=== PATIENT | female | born 1985 | race Caucasian/White ===

== ENCOUNTER 2023-03-24 17:54 | Emergency (ER) | payer BC, SELFPAY ==
--- NOTE | ~2023-03-24 | XR_ITS ---
EXAM: XR tibia fibula RT 2V DATE: 03/24/2023 18:20 HISTORY: FALL DURING WATER SKIING,GEN ANT TIBIA PAIN . COMPARISON: None available. FINDINGS: Normal mineralization. No fracture or dislocation. No lytic or blastic lesion. Joint space s are maintained. No erosion or periosteal change. Soft tissues within normal limits. IMPRESSION: No acute osseous finding in the right tibia or fibula. Reviewed, dictated and finalized at location K.
[2023-03-24 18:02] VITALS: BP 139/90; PULSE 96; RESP 16; TEMP 36.1; O2SAT 100
--- NOTE | 2023-03-24 18:12 | ED.EXTPRO ---
HPI - Extremity Problem General Chief complaint: Extremity Problem,Nontraumatic Stated complaint: Right leg pain Time Seen by Provider: 03/24/23 18:34 Source: patient and RN notes reviewed Mode of arrival: ambulatory Limitations: no limitations History of Present Illness HPI Narrative: 37-year-old female presents with concern for right anterior lower leg pain. Reports 1 week ago she was water skiing when she fell and had a media anterior leg pain. Reports she has waited for the pain to improve, but is not improving. She reports she tried seeing her primary doctor but was unable to. She denies any or mention for her symptoms. She denies bruising, open skin, swelling, redness, warmth MD Complaint: extremity pain Related Data Home Medications Medication Instructions Recorded Confirmed citrulline 1 gram/4 gram oral 9 g PO DAILY 03/24/23 03/24/23 powder packet etonogestrel 0.12 mg-ethinyl 1 vag ring vaginal ONCE 03/24/23 03/24/23 estradiol 0.015 mg/24 hr vaginal ring (NuvaRing) levocarnitine 330 mg tablet 330 mg PO TID 03/24/23 03/24/23 (Carnitor) sodium phenylbutyrate 500 mg 500 mg PO TID 03/24/23 03/24/23 tablet (Buphenyl) Allergies Allergy/AdvReac Type Severity Reaction Status Date / Time No Known Allergies Allergy Verified 03/24/23 18:16 Review of Systems Review of Systems: CONSTITUTIONAL: Denies malaise, chills, sweats, or fever. SKIN: Denies rash or itching, open skin, laceration, abrasion, redness, warmth, swelling. MUSCULOSKELETAL: Reports right lower leg pain NEUROLOGIC: Denies numbness, weakness All systems reviewed & are unremarkable except as noted in HPI and below PMFSH Comments At time of signature, agree with nursing past medical, surgical, social and family history. There is no relevant family history pertinent to the presenting complaint Exam Narrative: GENERAL: Well-appearing, well-nourished, and in no acute distress. HEAD: Normocephalic, atraumatic. EYES: PERRLA, conjunctivae clear NECK: Supple. CHEST: Speaks in full sentences. No respiratory distress. HEART: Regular rate and rhythm. Normal and equal peripheral pulses. EXTREMITIES: Right lower leg has normal strength and sensation, normal range of motion. No edema or ecchymosis. 5/5 strength with ankle and knee flexion and extension. Normal sensation with sensitivity to light touch and pain. No point tenderness. No open wounds, no skin tenting, no devitalized tissue or atrophy, no trophic changes, no obvious deformity, alignment normal, nearby joints and structures intact. Distal pulses palpable and equal bilaterally, skin warm, dry, pink. Capillary refill less than 3 seconds. SKIN: Warm, dry, no rash. NEURO: Alert and oriented x3. PSYCH: Normal mood and affect Course Course Emergency Course: Patient is aware of diagnosis, understands and agrees to treatment plan. Anticipatory guidance given. Patient agrees to follow-up as directed and is aware of reasons to seek care at the emergency department. Portions of this record may have been created with voice recognition software Level of Care: Express Care Visit Vital Signs Vital signs: Vital Signs Temperature 97 F L 03/24/23 18:02 Pulse Rate 96 03/24/23 18:02 Respiratory Rate 16 03/24/23 18:02 Blood Pressure 139/90 03/24/23 18:02 Pulse Oximetry 100 03/24/23 18:02 Oxygen Delivery Room Air 03/24/23 18:02 Temperature 97 F L 03/24/23 18:02 Pulse Rate 96 03/24/23 18:02 Respiratory Rate 16 03/24/23 18:02 Blood Pressure 139/90 03/24/23 18:02 Pulse Oximetry 100 03/24/23 18:02 Oxygen Delivery Room Air 03/24/23 18:02 Reviewed. MDM - Extremity (Nontraumatic) MDM Narrative Medical decision making narrative: Patients injury and pain is consistent with musculoskeletal etiology. No signs of neurological or vascular compromise on exam. Compartments and tissues are soft without signs of compartment syndrome. Pain is felt appropriate
[2023-03-24 18:21] VITALS: BP 139/90; PULSE 96; RESP 16; TEMP 36.1; O2SAT 100
== END 2023-03-24 18:44 | disposition home or self-care (01) ==
PROVIDERS: Emergency Provider Nurse Practitioner
DX: S89.92XA Unspecified injury of left lower leg, initial encounter (principal); W19.XXXA Unspecified fall, initial encounter; Y93.17 Activity, water skiing and wake boarding
CPT/HCPCS: 73590; 99213; G0463

== ENCOUNTER 2024-09-20 17:45 | Emergency (ER) | payer BC, SELFPAY ==
--- OUTSIDE RECORDS SUMMARY | 2024-09-20 17:47 | XMS_ITS | Encounter Summary ---
Author Organization [facility] Address [address] [place] [address] Phone Care Team Providers Care Director Of Placement Name Role Phone Silvana Nye MD Unavailable [phone] Nelia Yarbrough MD Unavailable Farhan Orozco MD Primary Care Provider [phone] Encounter Details Date Type Department Care Team (Late st Contact Info) Description 09/06/2024 Telephone [facility] Pediatric Genetics [facility] 2[address] [place] [address] [place] [address] Jeannie Buitrago MA Social History Tobacco Use Types Packs/Day Years Used Date Smoking Tobacco: Never Smokeless Tobacco: Never Alcohol Use Standard Drinks/Week Comments No 0 (1 standard drink = 0.6 oz pur e alcohol) PHQ-2 Answer Date Recorded PHQ-2 Total Score (If total score is 3 or more points, staff should administer the PHQ-9) 0 10/23/2023 Personal Safety Answer Date Recorded Have you ever been in or are you currently in a harmful physical or emotional relationship or is someone making you feel afraid or unsafe? Denies 11/17/2022 Comments No Sex and Gender Information Value Date Recorded Sex Assigned at Not on file Legal Sex Female 10:58 AM INDUSTRIAL ECONOMICS PROFESSOR Gender Identity Female 03/02/2022 7:15 AM CDT Sexual Orientation Not on file documented as of this encounter Miscellaneous Notes * Telephone Encounter - Jeannie Buitrago MA - 09/06/2024 2:38 PM INDUSTRIAL ECONOMICS PROFESSOR Spoke with Naomy for a follow up call regarding medication shipment from [facility], checked the tracking number [facility] gave, the medication is on the delivery truck and out for delivery.Patient stated she may still go to the ER to get IV started, she is currently still waiting for hermedication. STRIAL ECONOMICS PROFESSOR * Telephone Encounter - Jeannie Buitrago MA - 09/06/2024 7:47 AM INDUSTRIAL ECONOMICS PROFESSOR Called Naomy this morning, regarding her BUPHENYL 500 mg tablet, she stated she did get a tracking number, she stated Olga Lidia from [facility] executive patient relation team , did callher and told her it has shipped, Naomy stated she will check this morning and make sure she she's the shipment in progress, she stated she will call us once she confirms. Thanks, Odalis Buitrago MA II STRIAL ECONOMICS PROFESSOR documented in this encounter Plan of Treatment Not on file documented as of this encounter Visit Diagnoses Not on filedocumented in this encounter Care Teams Director Of Placement Relationship Specialty Start Date End Date Farhan Orozco MD 2 [facility] [address] [address] PCP - General Family Medicine 11/29/22 Silvana Nye MD [address] [facility] [address] [place] [address] Referring Physician Clinical Genetics 05/09/18 Nelia Yarbrough MD 1 [facility] [address] [place] [address] Referring Physician Obstetrics and Gynecology 05/09/18 documented as of this encounter
--- OUTSIDE RECORDS SUMMARY | 2024-09-20 17:47 | XMS_ITS | Clinical Summary ---
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 Active L-Citrulline Powder Take 9 g by mouth. 04/17/20 19 Active Buphenyl 500 MG Tablet 06/11/20 21 Active methylPREDNISolone (Medrol) 4 MG Tablet Therapy PackIndications:Ac rock non-recurrent maxillary sinusitis Use as per instructions on package. 21 Tablet 06/12/20 21 Active NuvaRing 0.12-0.015 MG/24HR RING INSERT 1 RING VAGINALLY DIRECTED. REMOVE AFTER 3 WEEKS & WAIT 7 DAYS BEFORE INSERTING A NEW RING 12/31/19 24 Active Sodium Phenylbutyrate 500 MG Tablet 01/04/20 24 Active Citrulline Powder 9 g by Does not apply route daily. Active levOCARNitine (CARNITOR) 165 MG Tablet Take 990 mg by mouth See Admin Instructions. Pt does not recall dosage. Pt takes nine tabs po qd Active Active Problems No known active problems Encounters Date Type Department Care Team Description 09/06/2024 6:33 PM REACTOR SERVICE OPERATOR - 09/06/2024 10:10 PM REACTOR SERVICE OPERATOR Emergency [facility] Emergency [address] [place] [address] Severo Kim MD Nausea Discharge Disposition: Discharged to home or Selfcare 09/06/2024 Travel from Last 3 Months Immunizations Immunization Administration Dates Next Due Influenza Vaccine, Quadrivalent, PF 05/12/2021,1 Social History Tobacco Use Types Packs/Day Years Used Date Smoking Tobacco: Never Smokeless Tobacco: Never Tobacco Cessation:Counseling Given: Not Answered Alcohol Use Standard Drinks/Week Comments Not Currently 0 (1 standard drink = 0.6 oz pur e alcohol) Sexually Active Control Partners Comments Yes Other Male NuvaRing Comments No Sex and Gender Information Value Date Recorded Sex Assigned at Not on file Legal Sex Female 11:56 PM CDT Gender Identity Not on file Sexual Orientation Not on file Last Filed Vital Signs Vital Sign Reading Time Taken Comments Blood Pressure 130/98 09/06/2024 10:00 PM REACTOR SERVICE OPERATOR Pulse 73 09/06/2024 10:00 PM REACTOR SERVICE OPERATOR Temperature 37.1 C (98.8 F) 09/06/2024 6:02 PM REACTOR SERVICE OPERATOR Respiratory Rate 18 09/06/2024 6:02 PM REACTOR SERVICE OPERATOR Oxygen Saturation 100% 09/06/2024 10: 00 PM REACTOR SERVICE OPERATOR Inhaled Oxygen Concentration - - Weight 61.2 kg (134 lb 14.7 oz) 09/06/2024 6:02 PM REACTOR SERVICE OPERATOR Height 170.2 cm (5' 7 ) 09/06/2024 6:02 PM REACTOR SERVICE OPERATOR Body Mass Index 21.13 09/06/2024 6:02 PM REACTOR SERVICE OPERATOR Plan of Treatment Health Maintenance Due Date Last Done Comments Hepatitis C Virus (HCV) Screening 1984 TdaP Immunization 1984 Pap Smear 2005 Cervical Cancer Screening (CCS) 2014 HPV/Cotest 2014 Influenza Immunization (#1) 2024 10/0 01/2021, 05/25/2020, 05/09/2019, Additional history exists SARS-COV-2 Immunization (2023- season) 2024 Respiratory Syncytial Virus (RSV) Immunization (Adult) (1 - 1-dose 75+ series) 2059 DTaP/Tdap/Td Immunization Discontinued 1998, 09/22/1989, 07/28/1987, Additional history exists Hepatitis B Immunization Completed , 03/30/1999, 02/18/1999 Discussion re Starting/Frequency of Mammograms Completed 07/12/2024, 08/26/2020 Meningococcal Immunization (ACWY) Aged Out No longer eligible based on patient's age to complete this topic Pneumococcal Immunization Combined Aged Out No longer eligible based on patient's age to complete this topic Rotavirus Immunization Aged Out No lo nger eligible based on patient's age to complete this topic Procedures Procedure Name Priority Date/Time Associated Diagnosis Comments CBC WITH AUTO DIFFERENTIAL STAT 09/06/2024 6:14 PM REACTOR SERVICE OPERATOR AMMONIA STAT 09/06/2024 6:14 PM REACTOR SERVICE OPERATOR CMP (COMPREHENSIVE METABOLIC PANEL) STAT 09/06/2024 6:14 PM REACTOR SERVICE OPERATOR COMPLETE BLOOD COUNT (CBC) WITH DIFF STAT 09/06/2024 6:14 PM REACTOR SERVICE OPERATOR from Last 3 Months Results * (ABNORMAL) CBC with Auto Differential (09/06/2024 6:14 PM REACTOR SERVICE OPERATOR) WBC 5.22 4.00 - 12.00 10(3)/mcL 09/06/2024 6:30 PM REACTOR SERVICE OPERATOR [facility] RBC 3.80 3.80 - 5.30 10(6)/mcL 09/06/2024 6:30 PM REACTOR SERVICE OPERATOR [facility] HEMOGLOBIN (HGB) 11.5(L) 12.0 - 15.8 g/dL 09/06/2024 6:30 PM REACTOR SERVICE OPERATOR [facility] HEMATOCRIT (HCT) 33.9(L) 36.0 - 47.0 % 09/06/2024 6:30 PM REACTOR SERVICE OPERATOR [facility] MCV 89.2 82.0 - 96.0 fL 09/06/2024 6:30 PM REACTOR SERVICE OPERATOR [facility] MCH 30.3 26.0 - 34.0 pg 09/06/2024 6:30 PM REACTOR SERVICE OPERATOR [facility] MCHC 33.9 31.0 - 36.0 g/dL 09/06/2024 6:30 PM [facility] PLATELET COUNT 244 140 - 440 10(3)/[facility] 09/06/2024 6:30 PM [facility] RDW 12.3 11.8 - 15.5 % 09/06/2024 6:30 PM [facility] MPV 9.5(L) 9.7 - 12.4 fL 09/06/2024 6:30 PM [facility] NEUTROPHILS 36.2(L) 47.0 - 73.0 % 09/06/2024 6:30 PM [facility] LYMPHOCYTES 55.6(H) 18.0 - 42.0 % 09/06/2024 6:30 PM [facility] MONOCYTES 5.9 4.0 - 12.0 % 09/06/2024 6:30 PM [facility] EOSINOPHILS 1.7 0.0 - 5.0 % 09/06/2024 6:30 PM [facility] BASOPHILS 0.6 0.0 - 1.0 % 09/06/2024 6:30 PM [facility] ABSOLUTE NEUTROPHILS 1.89 1.60 - 7.70 10(3)/mcL 09/06/2024 6:30 PM [facility] ABSOLUTE LYMPHOCYTES 2.90 1.30 - 3.20 10(3)/[facility] 09/06/2024 6:30 PM [facility] ABSOLUTE MONOCYTES 0.31 0.20 - 1.00 10(3)/mcL 09/06/2024 6:30 PM [facility] ABSOLUTE EOSINOPHIL 0.09 0.00 - 0.40 10(3)/[facility] 09/06/2024 6:30 PM [facility] ABSOLUTE BASOPHILS 0.03 0.00 - 0.10 10(3)/mcL 09/06/2024 6:30 PM [facility] NRBC PER 100 WBC 0 09/06/19 6:30 PM [facility] Blood Venipuncture / Unknown 09/06/2024 6:14 PM REACTOR SERVICE OPERATOR 09/06/2024 6:28 PM REACTOR SERVICE OPERATOR us Severo Kim MD HEMATOLOGY ORDERABLES Xiomy katie Result [facility] [address] [place] [address] * (ABNORMAL) Comprehensive Metabolic Panel (Cmp) [id number] (09/06/2024 6:14 PM REACTOR SERVICE OPERATOR) SODIUM 139 136 - 145 mmol/L 09/06/2024 6:49 PM REACTOR SERVICE OPERATOR [facility] POTASSIUM 3.6 3.5 - 5.1 mmol/L 09/06/2024 6:49 PM [facility] CHLORIDE 108(H) 98 - 107 mmol/L 09/06/2024 6:49 PM [facility] CO2, VENOUS 22 22 - 30 mmol/L 09/06/2024 6:49 PM [facility] ANION GAP 12.6 <18.0 mmol/L 09/06/2024 6:49 PM [facility] GLUCOSE 143(H) 70 - 99 mg/dL 09/06/2024 6:49 PM [facility] BUN 8 5 - 18 mg/dL 09/06/2024 6:49 PM [facility] CREATININE, BLOOD 0.66 0.60 - 1.00 mg/dL 09/06/2024 6:49 PM [facility] BUN/CREATININE RATIO 12 12 - 20 ratio 09/06/2024 6:49 PM [facility] TOTAL PROTEIN 7.3 6.0 - 8.0 g/dL 09/06/2024 6:49 PM [facility] ALBUMIN 4.1 3.5 - 5.0 g/dL 09/06/2024 6:49 PM [facility] A/G RATIO 1.3 1.0 - 2.2 09/06/2024 6:49 PM REACTOR SERVICE OPERATOR [facility] CALCIUM 8.7 8.7 - 10.5 mg/dL 09/06/2024 6:49 PM REACTOR SERVICE OPERATOR [facility] T BILI 0.5 0.2 - 1.2 mg/dL 09/06/2024 6:49 PM REACTOR SERVICE OPERATOR [facility] SGOT (AST) 16 6 - 42 U/L 09/06/2024 6:49 PM REACTOR SERVICE OPERATOR [facility] SGPT (ALT) 17 6 - 55 U/L 09/06/2024 6:49 PM REACTOR SERVICE OPERATOR [facility] ALKALINE PHOSPHATASE 38(L) 40 - 150 U/L 09/06/2024 6:49 PM REACTOR SERVICE OPERATOR [facility] GFR, ESTIMATED >60 >=60 09/06/2024 6:49 PM REACTOR SERVICE OPERATOR [facility] Comment: Creatinine Clearance is the preferred criteria for selecting drug dose adjustments in renally impaired patients. The GFR is provided as additional pertinent clinical information. GFR is reported in mL/min/1.73 sq m. Calculation based on the Chronic Kidney Disease Epidemiology Collaboration (CKD- EPI) equation refit without adjustment for race. GFR, EST. >60 >=60 025 6:49 PM REACTOR SERVICE OPERATOR [facility] GFR, EST. NONAFRICAN >60 >=60 09/06/2024 6:49 PM REACTOR SERVICE OPERATOR [facility] Blood Venipuncture / Unknown 09/06/2024 6:14 PM REACTOR SERVICE OPERATOR 09/06/2024 6:28 PM REACTOR SERVICE OPERATOR us Severo Kim MD CHEMISTRY ORDERABLES Final Result [facility] [address] [place] [address] * Ammonia [id number] (09/06/2024 6:14 PM REACTOR SERVICE OPERATOR) AMMONIA 25 18 - 72 umol/L 09/06/2024 6:42 PM REACTOR SERVICE OPERATOR [facility] Blood Venipuncture / Unknown 09/06/2024 6:14 PM REACTOR SERVICE OPERATOR 09/06/2024 6:28 PM REACTOR SERVICE OPERATOR Severo Kim MD CHEMISTRY ORDERABLES Final Result [facility] [address] [place] [id number] from Last 3 Months Insurance [facility] Care Teams Ball Fringe Machine Operator Relationship Specialty Start Date End Date Daniela Pendleton MD [address] [place] [address] [place] [address] PCP - General Family Medicine 01/25/24 Provider, None [place] 01/25/24
--- OUTSIDE RECORDS SUMMARY | 2024-09-20 17:47 | XMS_ITS | Clinical Summary ---
Author Organization [facility] Address [address] [place] [address] Care Team Providers Care Family Mediator Name Role Phone Silvana Nye MD Unavailable [phone] Nelia Yarbrough MD Unavailable Farhan Orozco MD Primary Care Provider [phone] Allergies Active Allergy Reactions Criticality Noted Date Comments Morphine Hives Medium Medications citrulline 600 mg capsuleIndications:Orn ithine carbamoyltransferase deficiency (HCC) Take 5 capsules by mouth 3 (three) times a day 2023 Active etonogestreL-ethinyl estradioL (NuvaRing) 0.12-0.015 mg/24 hr vaginal ringIndications:Encoun ter for surveillance of nuvaring Insert vaginally and leave in place for 3 consecutive weeks, then remove for 1 week. 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 Take 1 tablet (20 mg total) by mouth daily 30 tablet 2023 Active promethazine-DM (PROMETHAZINE-DM) 1.25-3 mg/mL syrupIndications:Viral URI with cough Take 5-10 mL by mouth 4 (four) times a day as needed for cough 120 mL 2023 Active sodium phenylbutyrate (BUPHENYL) 500 mg tabletIndications:Orni thine carbamoyltransferase deficiency (HCC) TAKE 12 TABLETS BY MOUTH 3 TIMES A DAY 1080 tablet 11 2024 Active sodium phenylbutyrate (BUPHENYL) 500 mg tabletIndications:Orni thine Carbamoyltransferase Deficiency Take 12 tablets (6,000 mg total) by mouth 3 (three) times a day 1080 tablet 11 08/30 Discontinued Active Problems Problem Noted Date Diagnosed Date 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 Cecilia Nye Assessment & Plan (11/29/2022 1:50 PM CDT): Following with dr. Nye - [facility] who rx her medications Continue buphenyl 500 mg 3 times daily Assessment & Plan (04/01/2018 9:06 AM CDT): Mild encephalopathy 2/2 hyperammonemia -[facility] following and providing recs. -Ammonia 20-30s since 03/30pm, currently 27 -s/p ammunol infusion. 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 Pharyngitis 12/21/2015 03/29/2018 Overview (11/09/2016): Pharyngitis, unspecified etiology Acute serous otitis media 12/21/2015 Overview (11/09/2016): Acute serous otitis media of left ear, recurrence not specified Pathological fracture 07/23/20132017 Overview (11/10/2016): Pathologic fracture Underweight 06/11/2012 11/29/2022 Overview (11/09/2016): Underweight Chronic diarrhea 06/11/2012 11/29/2022 Overview (11/09/2016): Chronic diarrhea Encounters Date Type Department Care Team Description 09/06/2024 Documentation [facility] 2nd [place] [address] [place] [address] Yordan Tariq MD 09/06/2024 Telephone [facility] 2nd [place] [address] [place] [address] Jeannie Buitrago MA 09/04/2024 Telephone [facility] 2nd [place] [address] [place] [address] Jeannie Buitrago MA 09/04/2024 Telephone [facility] 2nd [place] [address] [place] [address] 07/17/2024 Orders Only [facility] Primary Care at [address] [place] [phone] Farhan Orozco MD Visit for screening mammogram (Primary Dx) 07/12/2024 7:11 AM HOUSEPERSON - 07/12/2024 11:59 PM HOUSEPERSON Hospital Encounter [facility] [address] [place] [address] Encounter for screening mammogram for malignant neoplasm of breast Discharge Disposition: Discharge to home or self care from Last 3 Months Immunizations Name Administration Dates Next Due DTP 09/22/1989, 7,01/04/1985,11/06,1984 Hep B, Adolescent or Pediatric 08/31/1999,1998,02/18/1999 Influenza, Quadrivalent, Karol l Culture-based MDCK, Preservative Free, Antibiotic Free, Intramuscular 05/10/2018 Influenza, Quadrivalent, Spl it, Preservative Free, Intramuscular 05/12/2021,05/25/2020 Influenza, Split 06/05/2013,06/11/2012 Influenza, Trivalent, Preser vative Free, Intramuscular 06/05/2013 Influenza, Trivalent, Recomb inant, Egg Free, Preservative Free, Antibiotic Free, IM (FLUBLOK) 05/09/2019 Influenza, Unspecified 11/29/2022(Deferr ed: Patient Refused),11/04/2022(Deferred: Patient Refused),05/10/2018,06/07/2017 MMR 12/31/1992,11/04/1985 OPV 09/22/1989, 7,01/04/1985,11/06,1984 Td, adsorbed 02/18/1999 Surgical History Surgery Date Site/Laterality Comments FIRST RIB REMOVAL 08/07/2002 - 08/06/2003 thoracic rib removal Medical History Medical History Date Comments Ornithine carbamoyltransferase deficiency (HCC) Family History Medical History Relation Name Comments Diabetes Brother type 1 Diabetes mellitus; No Known Problems Father No Known Problems Mother Breast cancer Other Breast Cancer - 3 great aunts (Added by TW Conv) Ovarian cancer Other Thyroid cancer Other Relation Name Status Comments Brother Father Alive Mother Alive Other Social History Tobacco Use Types Packs/Day Years Used Date Smoking Tobacco: Never Smokeless Tobacco: Never Tobacco Cessation:Counseling Given: Not Answered Alcohol Use Standard Drinks/Week Comments No 0 [...] on file Legal Sex Female 10:58 AM HOUSEPERSON Gender Identity Female 03/02/2022 7:15 AM CDT Sexual Orientation Not on file Obstetrics History Para Term AB IAB SAB Ectopic Multiple Livin g Live Births 1 Date Outcome GA Total Labor Labor/2nd/3rd Weight Sex Type Anes PTL Lila A1 A5 Name Clin 2010 Term F Vag-S pont Living Comments IVF with PGD to avoid geneti c transmission of her disorder Last Filed Vital Signs Vital Sign Reading Time Taken Comments Blood Pressure 102/80 05/19/2024 4:04 PM CDT Pulse 85 05/19/2024 4:04 PM CDT Temperature 36.8 C (98.2 F) 05/19/2024 4:04 PM CDT Respiratory Rate 20 05/19/2024 4:04 PM CDT Oxygen Saturation 100% 05/19/2024 4:04 PM CDT Inhaled Oxygen Concentration - - Weight 62.6 kg (138 lb) 05/19/2024 4:04 PM CDT Height 170.2 cm (5' 7 ) 07/12/2024 7:24 AM HOUSEPERSON Body Mass Index 21.61 05/19/2024 4:04 PM CDT Plan of Treatment Health Maintenance Due Date Last Done Comments Hepatitis C Screening 1984 Varicella Vaccines (1 of 2 - 13+ 2-dose series) 1997 DTaP/Tdap/Td Vaccine (6 - Tdap) 02/19/1999 02/18/1999, 09/22/1989, 07/28/1987, Additional history exists Influenza Vaccine (#1) 2024 , 05/25/2020, 05/09/2019, Additional history exists Cervical Cancer Screening 10/22/20242023, 03/25/2022, 12/28/2020, Additional history exists Depression Screening 10/22/2024 10/23/2023, 03/25/2022, 06/25/2020, Additional history exists Regular Well Visit/Exam 18-64 10/22/2024 10/23/2023, 03/25/2022, 06/25/2020, Additional history exists Breast Cancer Screening-Mammogram 07/12/2025 07/12/2024, 08/26/2020 Hepatitis B Screening Completed 08/31/1999 , 03/30/1999, 02/18/1999 HPV Vaccines Aged Out No longer eligi ble based on patient's age to complete this topic Pneumococcal vaccine <65 Aged Out No longer eligible based on patient's age to complete this topic Procedures Procedure Name Priority Date/Time Associated Diagnosis Comments SCREENING MAMMOGRAM BILATERAL W PEDRO LUIS Schedule Routine, Read Routine (OP Routine) 07/12/2024 7:33 AM HOUSEPERSON Encounter for screening mammogram for malignant neoplasm of breast PAP, REFLEX HPV Routine 10/23/2023 3:58 PM CDT Well woman exam from Last 3 Months or Most Recently Relevant to Health Maintenance Results * Screening Mammogram Bilateral W Pedro Luis (07/12/2024 7:33 AM HOUSEPERSON) Anatomical Region Laterality Modality Breast Bilateral Mammography 07/12/2024 8:18 AM HOUSEPERSON Impressions 07/12/2024 8:18 AM HOUSEPERSON No evidence of malignancy in either breast. FINAL ASSESSMENT: BI-RADS Category 1: Negative. RECOMMENDATION: Recommend return for annual screening mammogram in 12 months. Electronically signed by: Braulio Sen M.D. Narrative 07/12/2024 8:18 AM HOUSEPERSON EXAMINATION: BILATERAL SCREENING MAMMOGRAM COMPARISON: 08/26/2020 TECHNIQUE: Full-field 2D and digital breast tomosynthesis (DBT) images were obtained. CAD was utilized. BREAST PARENCHYMAL COMPOSITION: The breasts are extremely dense, which lowers the sensitivity of mammography. FINDINGS: No suspicious masses, suspicious calcifications, or other suspicious findings are identified in either breast. There is no new suspicious finding in either breast on mammogram. Rosa Jensen NP IMG MAMMO PROCEDURES Final Result * Pap, reflex HPV (10/23/2023 3:58 PM CDT) CLINICAL INFORMATION: Amado Doty Comment:None given LMP Amado Doty Comment:NONE GIVEN Previous Pap Amado Doty Comment:NONE GIVEN Prev. Bx Amado Doty Comment:NONE GIVEN SOURCE: Amado Doty Comment:Cervix, Endocervix Pap, specimen adequacy Amado Doty Comment: Satisfactory for evaluation. Endocervical/transformation zone component present. Age and/or menstrual status not provided HPV interp Amado Doty Comment: Cytology Results: Negative for intraepithelial lesion or malignancy. COMMENTS Amado Doty Comment: This case could not be evaluated with computer assisted technology. The slide was manually screened according to routine procedures. Software Development Engineer Aron Cabrera Comment: BES, CT(ASCP) CT screening location: [facility] Administration [place] [address] Comment Amado Doty Comment: EXPLANATORY NOTE: The Pap is a screening test for cervical cancer. It is not a diagnostic test and is subject to false negative and false positive results. It is most reliable when a satisfactory sample, regularly obtained, is submitted with relevant clinical findings and history, and when the Pap result is evaluated along with historic and current clinical information. Thin prep 10/23/2023 3:58 PM CDT 10/24/2023 12:21 AM CDT Rosa Jensen NP LAB CYTOLOGY ORDERABLES Fin al Result [place] [id number] [address] [place] [phone] from Last 3 Months or Most Recently Relevant to Health Maintenance [place] [employer] [place] [employer] [place] [employer] [place] Advance Directives For more information, please contact: [phone] * Full Code (Latest Code Status on File) Date Activated Date Inactivated Comments 03/29/2018 10:01 PM 04/01/2018 9:13 PM Care Teams Family Mediator Relationship Specialty Start Date End Date Farhan Orozco MD [address] [facility] [address] [place] [address] [place] [id number] PCP - General Family Medicine 11/29/22 Silvana Nye MD [address] [place] [address] Referring Physician Clinical Genetics 05/09/18 Nelia Yarbrough MD [address] [facility] [address] [place] [address] Referring Physician Obstetrics and Gynecology 05/09/18
--- OUTSIDE RECORDS SUMMARY | 2024-09-20 17:47 | XMS_ITS | Referral Summary ---
Author Organization [facility] Address [address] [place] [address] Care Team Providers Care Circulator Name Role Phone Silvana Nye MD Unavailable [phone] Nelia Yarbrough MD Unavailable Farhan Orozco MD Primary Care Provider [phone] Encounters Date Type Department Care Team Description 09/06/2024 Documentation [facility] 2nd [place] [phone] Yordan Tariq MD 09/06/[address] [place] [phone] Iftikhar Talihina, MA 09/04/[address] [place] [phone] [place], [place] 09/04/[address] [place] [phone] 07/17/2024 Orders Only [facility] Primary Care at [address] [place] [phone] Farhan Orozco MD Visit for screening mammogram (Primary Dx) 07/12/2024 7:11 AM SENIOR APPLICATION SECURITY CONSULTANT - 07/12/2024 11:59 PM SENIOR APPLICATION SECURITY CONSULTANT Hospital Encounter [facility] [address] [place] [address] Encounter for screening mammogram for malignant neoplasm of breast Discharge Disposition: Discharge to home or self care from Last 3 Months Allergies Active Allergy Reactions Criticality Noted Date [...] mL 2023 Active famotidine (PEPCID) 20 mg tabletIndications: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 Nye - peds genetics who rx her medications Continue buphenyl 500 mg 3 times daily Assessment & Plan (04/01/2018 9:06 AM CDT): Mild encephalopathy 2/2 hyperammonemia -[facility] following and providing recs. -Ammonia 20-30s since 03/30pm, currently 27 -s/p ammunol infusion. Now on buphenyl 6g QID+levocarnitine + arginine -Ammonia level q3 -Regular diet today with 15-20g protein (patient to manage) -Scheduled zofran -Will decrease [id number] to 100cc/hr and discontinue lipid infusion Resolved [...] diarrhea 06/11/2012 11/29/2022 Overview (11/09/2016): Chronic diarrhea Immunizations Name Administration Dates Next Due DTP [...] 12/31/1992,11/04/1985 OPV 09/22/1989, 7,01/04/1985,11/06,1984 Td, adsorbed 02/18/1999 Social History Tobacco Use Types Packs/Day Years [...] on file Legal Sex Female 10:58 AM SENIOR APPLICATION SECURITY CONSULTANT Gender Identity Female 03/02/2022 7:15 AM CDT Sexual Orientation Not on file Last Filed [...] cm (5' 7 ) 07/12/2024 7:24 AM SENIOR APPLICATION SECURITY CONSULTANT Body Mass Index 21.61 05/19/2024 4:04 PM CDT Plan of Treatment Not on file Procedures Procedure Name Priority Date/Time Associated Diagnosis Comments SCREENING MAMMOGRAM BILATERAL W PEDRO LUIS Schedule Routine, Read Routine (OP Routine) 07/12/2024 7:33 AM SENIOR APPLICATION SECURITY CONSULTANT Encounter for screening mammogram for malignant neoplasm of breast PAP, REFLEX HPV Routine 10/23/2023 3:58 PM CDT Well woman exam from Last 3 Months or Most Recently Relevant to Health Maintenance Results * Screening Mammogram Bilateral W Pedro Luis (07/12/2024 7:33 AM SENIOR APPLICATION SECURITY CONSULTANT) Anatomical Region Laterality Modality Breast Bilateral Mammography 07/12/2024 8:18 AM SENIOR APPLICATION SECURITY CONSULTANT Impressions 07/12/2024 8:18 AM SENIOR APPLICATION SECURITY CONSULTANT No evidence of malignancy in either breast. FINAL ASSESSMENT: BI-RADS Category 1: Negative. RECOMMENDATION: Recommend return for annual screening mammogram in 12 months. Electronically signed by: Braulio Sen M.D. Narrative 07/12/2024 8:18 AM SENIOR APPLICATION SECURITY CONSULTANT EXAMINATION: BILATERAL SCREENING MAMMOGRAM COMPARISON: 08/26/2020 TECHNIQUE: [...] was manually screened according to routine procedures. Occupational Health Nurse Aron Cabrera Comment: BES, CT(ASCP) CT screening location: Am[facility] Administration [place] [address] Comment Amado Doty Comment: EXPLANATORY NOTE: The [...] NP LAB CYTOLOGY ORDERABLES Fin al Result [facility] Consumer [facility] [id number] [facility] [place] [phone] from Last 3 Months or Most Recently Relevant to Health Maintenance [place] Advance Directives For more information, please contact: [phone] * Full Code (Latest Code Status on File) Date Activated Date Inactivated Comments 03/29/2018 10:01 PM 04/01/2018 9:13 PM Care Teams Circulator Relationship Specialty Start Date End Date Farhan Orozco MD 2 [facility] [address] [address] PCP - General Family Medicine 11/29/22 Silvana Nye MD [address] [place] [address] Referring Physician Clinical Genetics 05/09/18 Nelia Yarbrough MD [address] [place] [address] Referring Physician Obstetrics and Gynecology 05/09/18
[2024-09-20 17:50] VITALS: BP 126/62; PULSE 104; RESP 16; TEMP 37.6; O2SAT 100
--- NOTE | 2024-09-20 18:08 | ED_ITS ---
HPI - URI/Sore Throat General Chief Complaint: Upper Respiratory Infection Stated Complaint: cough/ears/fever/chest aches Source: patient and RN notes reviewed Mode of arrival: ambulatory Limitations: no limitations History of Present Illness HPI Narrative: 39-year-old female presented for complaint of sore throat, headache, body aches, sinus pressure/congestion, cough, fever/chills. onset 2 days. taking Tylenol and Benadryl for symptoms. Denies sob, wheezing, n/v/d. MD elicited complaint: cough Related Data Home Medications ?Medication ?Instructions ?Recorded ?Confirmed ?Last Taken ?Type etonogestrel 0.12 mg-ethinyl 1 vag ring vaginal ONCE 03/24/23 09/20/24 Unknown History estradiol 0.015 mg/24 hr vaginal ring (NuvaRing) levocarnitine 330 mg tablet 330 mg PO TID 03/24/23 09/20/24 Unknown History (Carnitor) sodium phenylbutyrate 500 mg 500 mg PO TID 03/24/23 09/20/24 Unknown History tablet (Buphenyl) L-citrazine 09/20/24 Unknown History Allergies Allergy/AdvReac Type Severity Reaction Status Date / Time steroids AdvReac Severe Other Uncoded 09/20/24 18:21 Review of Systems Review of Systems: CONSTITUTIONAL: Endorses malaise, chills, sweats, fever EYES: Denies visual changes, redness, or discharge ENT: Reports rhinorrhea, congestion, sore throat CARDIOVASCULAR: Denies chest pain, palpitations, edema RESPIRATORY: Reports cough, post nasal drainage. Denies dyspnea GASTROINTESTINAL: Denies abdominal pain, nausea, vomiting, diarrhea MUSCULOSKELETAL: Endorses myalgia Exam Narrative: GENERAL: Ill-appearing, nontoxic no acute distress. EYES: PERRLA, conjunctivae clear ENT: Mucous membranes moist. TM pearly seymour with dull light reflex bilaterally; no tragal tenderness. Oropharynx erythematous without lesions or exudate, tonsils 2+ no drooling, no hoarseness, no trismus, uvula midline. No tripod positioning, muffled voice, soft palate or pharyngeal wall bulging NECK: Supple. No lymphadenopathy CHEST: Clear to auscultation, breath sounds equal. No wheezing, rhonchi, rales, or stridor. No respiratory distress, speaks in full sentences. HEART: Regular rate and rhythm. No murmur heard. SKIN: Warm, dry, no rash. NEURO: Alert and oriented x3. PSYCH: Normal mood and affect Course Course Emergency Course: Patient is aware of diagnosis, understands and agrees to treatment plan. Anticipatory guidance given. Patient agrees to follow-up as directed and is aware of reasons to seek care at the emergency department. Portions of this record may have been created with voice recognition software Level of Care: Express Care Visit Vital Signs Vital signs: Vital Signs Temperature 99.6 F 09/20/24 17:50 Pulse Rate 104 H 09/20/24 17:50 Respiratory Rate 16 09/20/24 17:50 Blood Pressure 126/62 09/20/24 17:50 Pulse Oximetry 100 09/20/24 17:50 Oxygen Delivery Room Air 09/20/24 17:50 Temperature 99.6 F 09/20/24 17:50 Pulse Rate 104 H 09/20/24 17:50 Respiratory Rate 16 09/20/24 17:50 Blood Pressure 126/62 09/20/24 17:50 Pulse Oximetry 100 09/20/24 17:50 Oxygen Delivery Room Air 09/20/24 17:50 reviewed MDM - URI/Sore Throat MDM Narrative Medical decision making narrative: POS flu. Discussed physical exam findings. Advised supportive measures and signs/symptoms to go to the ER. Pt is appropriate for outpt treatment and f/u. Differential Diagnosis Differential diagnosis: Likely upper respiratory infection, sinusitis and viral infection Discharge Plan Discharge Clinical Impression: Influenza Patient Disposition: Home, Self-Care Condition: Stable Instructions: Influenza (ED) Additional Instructions: Influenza positive You should avoid crowds until you are fever free for 24 hours without the use of fever reducing medications, or the symptoms are improved Rest. Drink plenty of fluids. Tylenol 1000mg every 8 hours as needed for pain/fever Flonase spray and Zyrtec (or Claritin/Sheyla) for sinus pressure/congestion over the counter Cough syrup may cause drowsiness; avoid driving or take it at night time. Follow up with your primary care provider as needed in 1-2 weeks Go to the ER for worsening symptoms or concerns Patient Language: Citizen Of [place] Prescriptions: No Action sodium phenylbutyrate [Buphenyl] 500 mg Tablet 500 mg PO TID levocarnitine [Carnitor] 330 mg Tablet 330 mg PO TID Rx Instructions: must administer with a meal/food etonogestrel-ethinyl estradiol [NuvaRing] 0.12-0.015 mg/24 hr Ring 1 vag ring VAGINAL ONCE ibuprofen 600 mg tablet 600 mg PO QID PRN (Reason: pain) Qty: 30 0RF L-citrazine Follow-up/Referrals: Ernesto,MD Farhan [Primary Care Provider] - Stand Alone Forms: Work/School Release IP Time of Disposition: 18:23
[2024-09-20 18:19] LABS: EDCOVIDSCREEN Negative (Negative); EDINFLUASCREEN Positive (Negative); EDINFLUBSCREEN Negative (Negative); EDSTREPNEGPOS1 Negative (Negative)
== END 2024-09-20 18:24 | disposition home or self-care (01) ==
PROVIDERS: Emergency Provider Nurse Practitioner Family; PCP Family Medicine
DX: J10.1 Influenza due to other identified influenza virus with other respiratory manifestations (principal); Z20.822 Contact with and (suspected) exposure to COVID-19
CPT/HCPCS: 87081; 87426; 87804; 87880; 99213; G0463